=== PATIENT | male | born 1980 | race American Indian/Alaskan Native ===

== ENCOUNTER 2017-03-22 21:22 | Emergency (ER) | payer OTHER ==
[2017-03-23] MEDS ORDERED: FLEXERIL PO ONE (00:58)
[2017-03-23] MEDS ORDERED: TYLENOL #3 PO ONE (00:58)
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
[2017-03-23 04:17] VITALS: BP 114/76
== END 2017-03-23 04:18 | disposition home or self-care (01) ==
LOC: EDSEX 21:22 → ED 21:22
DX: S02.2XXA Fracture of nasal bones, initial encounter for closed fracture (principal); Y08.89XA Assault by other specified means, initial encounter; Y93.9 Activity, unspecified; Y92.9 Unspecified place or not applicable; Y99.9 Unspecified external cause status
CPT/HCPCS: 70450; 70486; 72125